=== PATIENT | female | born 1960 | race Caucasian/White ===

== ENCOUNTER 2021-07-29 09:59 | Inpatient (IN) | payer BC, SELFPAY ==
[~2021-07-29] VITALS: Ht 185.4 cm; Wt 65.8 kg
[2021-07-29 10:02] VITALS: BP_SYST 123
[2021-07-29] MEDS ORDERED: NACL 0.9% 1,000 ML IV ONE (10:15)
[2021-07-29] MEDS ORDERED: DEC4 PO (10:23)
[2021-07-29] MEDS ORDERED: ONDA4TAB55 PO (10:23)
[2021-07-29] MEDS ORDERED: METO-290 PO (10:23)
[2021-07-29] MEDS ORDERED: LORA-259 PO (10:23)
[2021-07-29 10:26] LABS: EOSINOPHILS % (AUTO) 0.5 % (0.0-4.0); HEMATOCRIT 37.4 % (36-48); HEMOGLOBIN 12.5 g/dL (12.0-16.0); LYMPHOCYTES # (AUTO) 1.2 K/uL (1.0-5.5); LYMPHOCYTES % (AUTO) 43.1 % (20.5-51.5); MEAN CORPUSCULAR HEMOGLOBIN 28 pg (27-31); MEAN CORPUSCULAR HGB CONC 34 % (32-36); MEAN CORPUSCULAR VOLUME 83 fL (79.0-98.0); MONOCYTES # (AUTO) 0.4 K/uL (0.0-1.0); MONOCYTES % (AUTO) 12.6 % (1.7-9.3); NEUTROPHILS # (AUTO) 1.2 K/uL (1.8-7.7); PLATELET COUNT (AUTO) 56 K/uL (130-430); RED BLOOD CELL COUNT(AUTO) 4.51 MIL/uL (4.2-6.2); RED CELL DISTRIBUTION WIDTH 13.4 % (9.0-15.0); WHITE BLOOD COUNT (AUTO) 2.8 K/uL (4.8-10.8)
[2021-07-29] MEDS ORDERED: dilTIAZem HCL IVP 5 MG/ML VIAL IVP ONE ×2 (10:30→12:15)
[2021-07-29] MEDS ORDERED: ADENOSINE 6MG/2ML VIAL IVP ONE ×2 (10:30)
[2021-07-29 10:36] LABS: CALCIUM 10.3 mg/dL (8.4-11.0); CREATININE 0.85 mg/dL (0.55-1.30); POTASSIUM 3.3 mmol/L (3.5-5.1)
[2021-07-29 10:44] LABS: ALBUMIN 3.9 g/dL (3.4-4.8); TOTAL BILIRUBIN 0.7 mg/dL (0.0-1.0)
[2021-07-29 10:51] LABS: BASOPHILS % (AUTO) 0.2 % (0.0-2.0); NEUTROPHILS % (AUTO) 43.6 % (40.0-70.0)
[2021-07-29] MEDS ORDERED: IOHEXOL 350 mgI/mL, 150 ML INFUS..BTL IV ONE (11:26)
[2021-07-29 11:45] LABS: THYROID STIMULATING HORMONE 0.88 uIu/mL (0.36-3.74)
[2021-07-29 15:07] VITALS: BP_SYST 119
[2021-07-29 16:00] VITALS: BP_SYST 102
[2021-07-29] MEDS ORDERED: DILTIAZEM HCL 120 MG CAP.SR.24H PO ONE (16:00)
[2021-07-29] MEDS: NORMAL SALINE 5 ML DISP.SYRIN IVF SCH ×2 (16:19→21:31)
[2021-07-29 20:18] VITALS: BP_SYST 105
[2021-07-30 03:01] VITALS: BP_SYST 112
[2021-07-30] MEDS: NORMAL SALINE 5 ML DISP.SYRIN IVF SCH ×2 (05:07→13:37)
[2021-07-30 06:49] LABS: ALBUMIN 3.3 g/dL (3.4-4.8); CALCIUM 9.3 mg/dL (8.4-11.0); CREATININE 0.64 mg/dL (0.55-1.30); POTASSIUM 3.7 mmol/L (3.5-5.1); THYROID STIMULATING HORMONE 1.2 uIu/mL (0.36-3.74); TOTAL BILIRUBIN 0.3 mg/dL (0.0-1.0)
[2021-07-30 07:05] LABS: BASOPHILS # (AUTO) 0.1 K/uL (0.0-0.2); BASOPHILS % (AUTO) 2.9 % (0.0-2.0); EOSINOPHILS % (AUTO) 0.5 % (0.0-4.0); HEMATOCRIT 32.2 % (36-48); HEMOGLOBIN 10.9 g/dL (12.0-16.0); LYMPHOCYTES # (AUTO) 1.3 K/uL (1.0-5.5); LYMPHOCYTES % (AUTO) 48.1 % (20.5-51.5); MEAN CORPUSCULAR HEMOGLOBIN 28 pg (27-31); MEAN CORPUSCULAR HGB CONC 34 % (32-36); MEAN CORPUSCULAR VOLUME 83 fL (79.0-98.0); MONOCYTES # (AUTO) 0.3 K/uL (0.0-1.0); MONOCYTES % (AUTO) 10.2 % (1.7-9.3); NEUTROPHILS % (AUTO) 38.3 % (40.0-70.0); PLATELET COUNT (AUTO) 68 K/uL (130-430); RED BLOOD CELL COUNT(AUTO) 3.88 MIL/uL (4.2-6.2); RED CELL DISTRIBUTION WIDTH 13.3 % (9.0-15.0); WHITE BLOOD COUNT (AUTO) 2.6 K/uL (4.8-10.8)
[2021-07-30 08:00] VITALS: BP_SYST 127
[2021-07-30] MEDS ORDERED: DILTIAZEM HCL 120 MG CAP.SR.24H PO SCH (09:00)
[2021-07-30] MEDS ORDERED: ASPIRIN 81 MG TAB.CHEW PO SCH (09:00)
[2021-07-30 11:55] VITALS: BP_SYST 104
[2021-07-30 16:40] VITALS: BP_SYST 116
[2021-07-30 19:09] VITALS: BP_SYST 104
[2021-07-30] MEDS ORDERED: ASA81 PO (19:16)
[2021-07-30] MEDS ORDERED: DILT120C89 PO (19:16)
== END 2021-07-30 19:50 | disposition home or self-care (01) | DRG 310 ==
LOC: SED 09:59 → STU 13:42
PROVIDERS: ADMIT Internal Medicine; ATTEND Internal Medicine
DX: I48.0 Paroxysmal atrial fibrillation (principal); D70.1 Agranulocytosis secondary to cancer chemotherapy; E86.0 Dehydration; D69.6 Thrombocytopenia, unspecified; T45.1X5A Adverse effect of antineoplastic and immunosuppressive drugs, initial encounter; K21.9 Gastro-esophageal reflux disease without esophagitis; Z20.822 Contact with and (suspected) exposure to COVID-19; Z80.0 Family history of malignant neoplasm of digestive organs; Z80.3 Family history of malignant neoplasm of breast; Z85.3 Personal history of malignant neoplasm of breast; Z79.899 Other long term (current) drug therapy; Z79.82 Long term (current) use of aspirin; Y92.89 Other specified places as the place of occurrence of the external cause
CPT/HCPCS: 36415; 71045; 71275; 76376; 80053; 83880; 84439; 84443; 84484; 85025; 85379; 93005; 93306; 96361; 96374; 96375; 99291; G0378; J3490; Q9967

== ENCOUNTER 2021-09-09 08:43 | Emergency (ER) | payer BC ==
[~2021-09-09] VITALS: Ht 185.4 cm; Wt 66.7 kg
[2021-09-09 08:43] VITALS: BP_SYST 128
[~2021-09-09 08:43] MED LIST: ASA81 PO; DEC4 PO; DILT120C89 PO; LORA-259 PO; METO-290 PO; ONDA4TAB55 PO
--- NOTE | 2021-09-09 08:45 | NUR ---
Pt. bib with c/o SOB and tachycardia, woke up this morning and felt SOB with heart racing fast, denies any activity, recently completed chemotherapy for breast CA and did have episode of atrial fibrillation post 1 chemo treatment, denies chest pain
--- NOTE | 2021-09-09 08:45 | NUR ---
BROUGHT IMMEDIATELY BACK TO BED #2 AND TRIAGED. REPORT GIVEN TO KALANI.
--- NOTE | 2021-09-09 08:47 | NUR ---
ER at bedside examining patient.
--- NOTE | 2021-09-09 08:59 | NUR ---
radiology at bedside for chest xray
[2021-09-09] MEDS ORDERED: NACL 0.9% 1,000 ML IV ONE (09:00)
[2021-09-09] MEDS ORDERED: dilTIAZem HCL IVP 5 MG/ML VIAL IVP ONE (09:00)
[2021-09-09 09:20] LABS: HEMOGLOBIN 11.5 g/dL (12.0-16.0)
[2021-09-09 09:28] LABS: CALCIUM 9.8 mg/dL (8.4-11.0); CREATININE 0.84 mg/dL (0.55-1.30); POTASSIUM 3.5 mmol/L (3.5-5.1)
[2021-09-09 09:33] LABS: EOSINOPHILS % (AUTO) 1.9 % (0.0-4.0); HEMATOCRIT 34.4 % (36-48); MEAN CORPUSCULAR HEMOGLOBIN 29 pg (27-31); MEAN CORPUSCULAR HGB CONC 33 % (32-36); MEAN CORPUSCULAR VOLUME 86 fL (79.0-98.0); MONOCYTES # (AUTO) 0.2 K/uL (0.0-1.0); MONOCYTES % (AUTO) 10.6 % (1.7-9.3); NEUTROPHILS % (AUTO) 56.9 % (40.0-70.0); PLATELET COUNT (AUTO) 104 K/uL (130-430); RED CELL DISTRIBUTION WIDTH 15.4 % (9.0-15.0)
[2021-09-09 09:34] LABS: ALBUMIN 3.8 g/dL (3.4-4.8); TOTAL BILIRUBIN 0.4 mg/dL (0.0-1.0)
--- NOTE | 2021-09-09 09:39 | NUR ---
CARDIZEM GIVEN, 4 ML, GIVEN OVER 7 MINUTES. HR REDUCED TO 82
[2021-09-09 09:43] LABS: WHITE BLOOD COUNT (AUTO) 1.5 K/uL (4.8-10.8)
[2021-09-09 09:44] LABS: BASOPHILS % (AUTO) 0.2 % (0.0-2.0); LYMPHOCYTES # (AUTO) 0.5 K/uL (1.0-5.5); LYMPHOCYTES % (AUTO) 30.4 % (20.5-51.5); NEUTROPHILS # (AUTO) 0.9 K/uL (1.8-7.7)
--- NOTE | 2021-09-09 12:09 | NUR ---
MD DEVINE AT BEDSIDE ASSESSING PT FOR POSSIBLE DC HOME.
[2021-09-09 12:10] VITALS: BP_SYST 100
--- NOTE | 2021-09-09 12:11 | NUR ---
Patient given written and verbal discharge instructions and verbalizes understanding. ER MD discussed with patient the results and treatment provided. Patient in stable condition. ID arm band removed. IV catheter removed intaCT. Patient educated on pain management and to follow up with PMD. Pain Scale 0/10. Opportunity for questions provided and answered. Medication side effect fact sheet provided.
== END 2021-09-09 12:11 | disposition home or self-care (01) ==
LOC: SED 08:43
DX: I48.20 Chronic atrial fibrillation, unspecified (principal); Z79.899 Other long term (current) drug therapy; Z79.82 Long term (current) use of aspirin; Z85.3 Personal history of malignant neoplasm of breast
CPT/HCPCS: 36415; 71045; 80053; 83880; 84484; 85025; 96361; 96374; 99291; J3490; J7030